=== PATIENT | male | born 1980 | race Caucasian/White ===

== ENCOUNTER 2017-10-16 18:16 | Emergency (ER) | payer OTHER ==
[2017-10-16] MEDS ORDERED: Lidocaine 2% 10 ML Amp INJECT ONE (18:40)
[2017-10-16] MEDS ORDERED: Bupivacaine 0.5% 30 ML SDV INJECT PRN (18:40)
--- NOTE | 2017-10-16 18:46 | EDM.PDOC ---
ED HPI GENERAL MEDICAL PROBLEM - General Chief Complaint: ENT Problem Stated Complaint: Dental Pain Time Seen by Provider: 10/16/17 18:19 Source of Information: Reports: Patient, Family, RN, RN Notes Reviewed History Limitations: Reports: No Limitations - History of Present Illness INITIAL COMMENTS - FREE TEXT/NARRATIVE: Patient presents to the ED at [facility] complaining of right lower jaw/ dental pain that started about 4 days ago and has progressively gotten worse. Patient states he has not been to a dentist in over 15 years. Patient states the right side of his face "feels puffy." He states he had some "pus" come out of the affected tooth area. He states it is difficulty to chew foods due to the pain. He does not see a dentist on a regular basis. Patient denies any headache. Onset Date: 10/13/17 Right Lower Tooth/Teeth Pain Score (Numeric/FACES): 9 - Related Data Allergies Allergy/AdvReac Type Severity Reaction Status Date / Time No Known Allergies Allergy Verified 10/16/17 18:51 Home Meds: Home Meds Clindamycin HCl 1 cap PO TID 10 Days #30 capsule 10/16/17 [Rx] methylPREDNISolone [Medrol] 4 mg PO ASDIRECTED #1 dosepk 10/16/17 [Rx] ED ROS ENT - Review of Systems Review Of Systems: See Below Constitutional: Denies: Fever, Chills HEENT: Reports: Dental Pain Respiratory: Denies: Shortness of Breath, Cough Cardiovascular: Denies: Chest Pain, Palpitations Skin: Reports: No Symptoms Neurological: Reports: No Symptoms. Denies: Dizziness, Headache ED EXAM, ENT - Physical Exam Exam: See Below Exam Limited By: No Limitations General Appearance: Alert, No Apparent Distress Mouth/Throat: Dental Abcess (molar #28), Dental Pain, Dental Tenderness (molar # 28) Neck: Supple Respiratory/Chest: No Respiratory Distress, Lungs Clear, Normal Breath Sounds Cardiovascular: Normal Peripheral Pulses, Regular Rate, Rhythm Neurological: Alert, Oriented Skin: Warm, Dry, Intact, Normal Color, No Rash ED ENT PROCEDURES - Additional/Other Procedure(s) Other (Free Text) Procedure(s): Dental nerve block was performed using 2% Lidocaine with 0.5% Marcaine. A total of 5cc mixture was injection into the right lower buccal area. Patient tolerated procedure well. No complications. Course - Vital Signs Last Recorded V/S: Last Vital Signs Temp 37.8 C 10/16/17 18:25 Pulse 108 H 10/16/17 18:25 Resp 16 10/16/17 18:25 BP 110/74 10/16/17 18:25 Pulse Ox - Orders/Labs/Meds Orders: Active Orders 24 hr Category Date Time Status Bupivacaine 0.5% [Marcaine 0.5%] Med 10/16/17 18:40 Active 30 ml INJECT ASDIRECTED PRN Medication Orders Bupivacaine HCl (Marcaine 0.5%) 30 ml INJECT ASDIRECTED PRN PRN Reason: Other Meds: Medications Generic Name Dose Route Start Last Admin Trade Name Freq PRN Reason Stop Dose Admin Bupivacaine HCl 30 ml 10/16/17 18:40 Marcaine 0.5% INJECT ASDIRECTED PRN Other Discontinued Medications Generic Name Dose Route Start Last Admin Trade Name Freq PRN Reason Stop Dose Admin Clindamycin Phosphate 900 mg 10/17/17 18:47 Cleocin IM 10/17/17 18:48 ONETIME ONE Clindamycin Phosphate 900 mg 10/16/17 18:47 Cleocin IM 10/16/17 18:48 ONETIME ONE Lidocaine HCl 10 ml 10/16/17 18:40 Xylocaine-Mpf 2% (Sterile-Pete) INJECT 10/16/17 18:41 ONETIME ONE Tramadol HCl 1 packet 10/16/17 18:54 Take Home: Tramadol 50 Mg, 4 Tab Pack PO 10/16/17 18:55 ONETIME ONE Departure - Departure Time of Disposition: 19:03 Disposition: Home, Self-Care 01 Condition: Good Clinical Impression: Dental abscess, Dental caries, Pain, dental - Discharge Information Prescriptions: Clindamycin HCl 1 cap PO TID 10 Days #30 capsule methylPREDNISolone [Medrol] 4 mg PO ASDIRECTED #1 dosepk Instructions: Dental Abscess Forms: ED Department Discharge Additional Instructions: 1. Stay well hydrated and rest 2. Take antibiotics for the full coarse, even if you are feeling better 3. Eat yogurt while on antibiotics 4. Do warm salt water gargles 5. Do not drive while taking pain medications, these can make you very drowsy 6. Rinse with an antiseptic mouth wash 7. May take Tylenol/Advil for pain as well 8. See your dentist JOSSE for further treatment, this is something not to be delayed 9. Call with any questions or concerns - Problem List Review Problem List Initiated/Reviewed/Updated: Yes - My Orders Last 24 Hours: My Active Orders 10/16/17 18:40 Bupivacaine 0.5% [Marcaine 0.5%] 30 ml INJECT ASDIRECTED PRN - Assessment/Plan Last 24 Hours: My Active Orders 10/16/17 18:40 Bupivacaine 0.5% [Marcaine 0.5%] 30 ml INJECT ASDIRECTED PRN
[2017-10-16] MEDS ORDERED: Clindamycin Phosphate 900 MG/6 ML SDV IM ONE (18:47)
[2017-10-16] MEDS ORDERED: Take Home: traMADol 50 MG, 4 Tab Pack PO ONE (18:54)
[2017-10-17] MEDS ORDERED: Clindamycin Phosphate 900 MG/6 ML SDV IM ONE (18:47)
== END 2017-10-16 19:41 | disposition home or self-care (01) ==
LOC: VM.ED 18:16
DX: K04.7 Periapical abscess without sinus (principal); K02.9 Dental caries, unspecified; Z79.899 Other long term (current) drug therapy
CPT/HCPCS: 64400; 96372; 99282; A9270; S0077

== ENCOUNTER 2017-10-17 05:32 | Observation (INO) | payer OTHER ==
[2017-10-17] MEDS ORDERED: Acetaminophen 325 MG Tab PO PRN (06:01)
[2017-10-17] MEDS ORDERED: Ondansetron 4 MG/2 ML SDV IV PRN (06:01)
[2017-10-17] MEDS: Acetaminophen/HYDROcodone 325-5 MG Tab PO PRN (06:25)
--- NOTE | 2017-10-17 06:32 | PCM.HP ---
H&P History of Present Illness - General Date of Service: 10/17/17 Admit Problem/Dx: Admission Diagnosis/Problem Admission Diagnosis/Problem Altered mental status Acute confusion Dental Abscess Fever Source of Information: Family, Old Records, RN, RN Notes Reviewed History Limitations: Reports: No Limitations - History of Present Illness Initial Comments - Free Text/Narative: 37-year-old patient with no past medical history is a direct admission to the observation unit at [facility] with a diagnosis of altered mental status, acute confusion, dental abscess, and fevers. The patient was seen in the emergency room department at [facility] last evening by myself. The patient had a one-day history of acute dental pain located around molar #28. The patient states that the pain has been progressive over the past few days, however last night it became unbearable. The patient states the tooth was abscess because he had swelling with purulent drainage around the gumline of that tooth. In the ER, I did give the patient a dental block for immediate pain relief. The patient does not have a regular dentist. The patient states he has not been to a dentist in over 15 years. Over the course of last evening the patient began running fevers of 103-104 at home. The patient's girlfriend noticed the acute onset of confusion with the patient seemingly more lethargic. The patient never complained of any headaches. The girlfriend states that the patient had more pus drainage from the infected tooth. The patient was given one IM injection of 900 mg clindamycin in the emergency room. The patient was given a prescription for clindamycin 900 mg 3 times a day and also a prescription for a Medrol Dosepak. The girlfriend states that she gave the patient 400 mg of by mouth ibuprofen for his pain around 4am as well as one of the tramadol for his dental pain. The girlfriend states that the patient has progressively gotten worse with his confusion and fever therefore she brought him back to the hospital. Onset of Symptoms: Reports: Today Symptom Onset Date: 10/17/17 - Related Data Allergies/Adverse Reactions: Allergies Allergy/AdvReac Type Severity Reaction Status Date / Time No Known Allergies Allergy Verified 10/16/17 18:51 Home Medications: Home Meds Clindamycin HCl 1 cap PO TID 10 Days #30 capsule 10/16/17 [Rx] methylPREDNISolone [Medrol] 4 mg PO ASDIRECTED #1 dosepk 10/16/17 [Rx] Past Medical History Gastrointestinal History: Reports: Bowel Obstruction - Past Surgical History GI Surgical History: Reports: Colostomy Other GI Surgeries/Procedures: revision of colostomy Social & Family History - Family History Family Medical History: Noncontributory - Tobacco Use Smoking Status *Q: Current Every Day Smoker Years of Tobacco use: 20 Packs/Tins Daily: 1 - Recreational Drug Use Recreational Drug Use: No Drug Use in Last 12 Months: No - Living Situation & Occupation Living situation: Reports: Single Occupation: Employed H&P Review of Systems - Review of Systems: Review Of Systems: See Below General: Reports: Fever, Chills. Denies: Weakness HEENT: Reports: Other (right lower jaw dental/facial pain) Pulmonary: Denies: Shortness of Breath, Cough Cardiovascular: Denies: Chest Pain, Palpitations Gastrointestinal: Reports: Nausea. Denies: Abdominal Pain, Vomiting Skin: Reports: No Symptoms Psychiatric: Reports: Confusion Neurological: Reports: Confusion. Denies: Headache Exam - Exam Exam: See Below - Vital Signs Vital Signs: Last Vital Signs Temp 38.4 C H 10/17/17 05:32 Pulse 132 H 10/17/17 05:32 Resp 28 H 10/17/17 05:32 BP 147/74 H 10/17/17 05:32 Pulse Ox 95 10/17/17 05:32 - Exam General: Alert, Oriented HEENT: Other (Percussion tenderness #28; gumline inflammed; mild right side facial swelling) Lungs: Clear to Auscultation, Normal Respiratory Effort Cardiovascular: Regular Rate, Regular Rhythm, Normal S1, Normal S2 GI/Abdominal Exam: Normal Bowel Sounds, Soft, Non-Tender Peripheral Pulses: 2+: Radial (L), Radial (R) Skin: Warm, Dry, Intact Neuro Extensive - Mental Status: Alert, Disorientation to Place, Disorientation to Time *Q Meaningful Use (ADM) - VTE *Q VTE Criteria *Q: No risk factors for VTE - Stroke *Q Stroke Criteria *Q: - AMI *Q AMI Criteria *Q: - Problem List (1) Altered mental status SNOMED Code(s): 042797029 ICD Code: R41.82 - ALTERED MENTAL STATUS, UNSPECIFIED Status: Acute Priority: High Current Visit: Yes Onset Date: ~10/17/17 Qualifiers: Altered mental status type: unspecified Qualified Code(s): R41.82 - Altered mental status, unspecified (2) Acute confusion SNOMED Code(s): 327229156 ICD Code: R41.0 - DISORIENTATION, UNSPECIFIED Status: Acute Priority: High Current Visit: Yes Onset Date: ~10/17/17 (3) Dental abscess SNOMED Code(s): 386791437 ICD Code: K04.7 - PERIAPICAL ABSCESS WITHOUT SINUS Status: Acute Priority : Medium Current Visit: Yes Onset Date: ~10/16/17 (4) Fever SNOMED Code(s): 800373061 ICD Code: R50.9 - FEVER, UNSPECIFIED Status: Acute Priority: Medium Current Visit: Yes Onset Date: ~10/17/17 Qualifiers: Fever type: unspecified Qualified Code(s): R50.9 - Fever, unspecified Problem List Initiated/Reviewed/Updated: Yes Orders Last 24hrs: Active Orders 24 hr Category Date Time Status Patient Status [ADT] Routine ADT 10/17/17 06:01 Active Ambulate [RC] ASDIRECTED Care 10/17/17 06:01 Active Height and Weight [RC] UPON Care 10/17/17 06:01 Active Intake and Output [RC] QSHIFT Care 10/17/17 06:02 Active May Shower [RC] ASDIRECTED Care 10/17/17 06:01 Active Oxygen Therapy [RC] PRN Care 10/17/17 06:01 Active VTE/DVT Education [RC] PER UNIT ROUTINE Care 10/17/17 06:01 Active Vital Signs [RC] Q4H Care 10/17/17 06:01 Active Consult to Case Management [CONS] Routine Cons 10/17/17 06:01 Active Mechanical Soft Diet [DIET] Diet 10/17/17 Breakfast Active Max Facial Sinus wo Cont [CT] Routine Exams 10/17/17 06:11 Ordered BASIC METABOLIC PANEL,BMP [CHEM] Routine Lab 10/17/17 06:07 Ordered CBC WITH AUTO DIFF [HEME] Routine Lab 10/17/17 06:07 Ordered CRP [C-REACTIVE PROTEIN] [CHEM] Routine Lab 10/17/17 06:07 Ordered CULTURE BLOOD [BC] Stat Lab 10/17/17 06:08 Ordered CULTURE BLOOD [BC] Stat Lab 10/17/17 06:08 Ordered DRUG SCREEN, URINE [URCHEM] Routine Lab 10/17/17 06:14 Uncollected LACTIC ACID [CHEM] Routine Lab 10/17/17 06:07 Ordered UA W/MICROSCOPIC [URIN] Routine Lab 10/17/17 06:14 Uncollected Acetaminophen [Tylenol] Med 10/17/17 06:01 Active 650 mg PO Q4H PRN Acetaminophen/HYDROcodone [[place] 325-5 MG] Med 10/17/17 06:01 Active 1 tab PO Q4H PRN Clindamycin Phosphate [Cleocin] 900 mg Med 10/17/17 08:00 Active Sodium Chloride 0.9% [Normal Saline] 100 ml IV Q8HR Lactated Ringers [Ringers, Lactated] 1,000 ml Med 10/17/17 06:15 Active IV ASDIRECTED Nicotine [Habitrol] Med 10/17/17 08:00 Active 21 mg TRDERM DAILY Ondansetron [Zofran] Med 10/17/17 06:01 Active 4 mg IV Q6H PRN methylPREDNISolone Sod Succ [Solu-MEDROL] Med 10/17/17 08:00 Active 40 mg IVPUSH DAILY Blood Culture x2 Reflex Set [OM.PC] Stat Oth 10/17/17 06:07 Ordered Resuscitation Status Routine Resus Stat 10/17/17 06:01 Ordered Medication Orders Acetaminophen (Tylenol) 650 mg PO Q4H PRN PRN Reason: Pain (Mild 1-3)/fever Hydrocodone Bitart/Acetaminophen ([place] 325-5 Mg) 1 tab PO Q4H PRN PRN Reason: Pain (moderate 4-6) Lactated Ringer's (Ringers, Lactated) 1,000 mls @ 125 mls/hr IV ASDIRECTED JACKY Clindamycin Phosphate 900 mg/ (Sodium Chloride) 106 mls @ 200 mls/hr IV Q8HR JACKY Methylprednisolone Sodium Succinate (Solu-Medrol) 40 mg IVPUSH DAILY JACKY Nicotine (Habitrol) 21 mg TRDERM DAILY JACKY Ondansetron HCl (Zofran) 4 mg IV Q6H PRN PRN Reason: Nausea/Vomiting Assessment/Plan Comment:: 37-year-old male patient with no past medical history is admitted to observation unit for a diagnosis of altered mental status, acute confusion, dental abscess, fevers. The patient will be started on IV clindamycin and also lactated Ringer's for fluid hydration. Patient will be given 40 mg of IV Solu- Medrol for inflammation around the infected tooth. I will obtain a CT scan of the right jaw and face to assess dental abscess status. The patient does meet sepsis criteria and therefore we will obtain the appropriate laboratory work, antibiotics, and fluid resuscitation. We will also check a urine drug screen, I do anticipate this to be positive for tramadol metabolites as he is on a tramadol prescription. The patient is a full code. I do anticipate the patient' s admission to be less than 48 hours. The patient does wish to be transferred to a higher level of care should the need arise. Will ask Case Management to see this patient for discharge planning and any financial concerns the patient may have. Care discussed with patient and girlfriend. It may be plausible the patient's altered mental status could be caused by the antibiotic, tramadol, worsening infection, lack of sleep. Will monitor closely.
[2017-10-17] MEDS ORDERED: methylPREDNISolone Sodium Succinate 40 MG/1 ML SDV IVPUSH SCH (08:00)
[2017-10-17] MEDS: Nicotine 21 MG/24 Hr Patch TRDERM SCH (09:03)
[2017-10-17] MEDS: Clindamycin Phosphate 900 MG in Sodium Chloride 0.9% 100 ML IV SCH ×3 (09:06→23:21)
[2017-10-17] MEDS: Lactated Ringers 1,000 ML IV SCH ×7 (10:00→23:23)
--- NOTE | 2017-10-17 11:15 | PCM.PN ---
- General Info Date of Service: 10/17/17 Admission Dx/Problem (Free Text): dental infection Subjective Update: Pt. states that he is feeling somewhat better. The results of his CT show no evidence of osteomyelitis or abscess, however this is a non-contrast CT. He states that he has been diaphoretic. Pt. was quite confused on admission, and had a temp of greater than 103 at that time. After his first dose of clindamycin, tylenol and fluids, he is more alert and "making more sense" according to his significant other. Pt. does have an elevated creatnine of 1.8 and has been unable to urinate. Functional Status: Reports: Pain Controlled - Review of Systems General: Reports: Fever, Weakness, Fatigue, Malaise, Chills, Night Sweats HEENT: Reports: Other (dental infection) Pulmonary: Reports: No Symptoms Cardiovascular: Reports: No Symptoms Gastrointestinal: Reports: No Symptoms Genitourinary: Reports: No Symptoms Musculoskeletal: Reports: No Symptoms Skin: Reports: No Symptoms Neurological: Reports: Confusion Psychiatric: Reports: No Symptoms - Patient Data Vitals - Most Recent: Last Vital Signs Temp 36.5 C 10/17/17 10:00 Pulse 77 10/17/17 10:00 Resp 20 10/17/17 10:00 BP 118/66 10/17/17 10:00 Pulse Ox 98 10/17/17 10:00 Weight - Most Recent: 101.514 kg Lab Results Last 24 Hours: Laboratory Results - last 24 hr 10/17/17 10/17/17 10/17/17 Range/Units 07:10 07:10 07:10 WBC 7.7 (4.0-10.0) x10^3/uL RBC 5.12 (4.5-6.0) x10^6/uL Hgb 14.8 (14.0-18.0) g/dL Hct 43.0 (40.0-52.0) % MCV 84.0 (78.0-93.0) fL MCH 28.9 (26.0-32.0) pg MCHC 34.4 (32.0-36.0) g/dL RDW Coeff of Gisela 13.6 (10.0-15.0) % Plt Count 136 (130-400) x10^3/uL Neut % (Auto) 89.1 H (50.0-80.0) % Lymph % (Auto) 5.2 L (25.0-50.0) % [place] % (Auto) 5.6 (2.0-11.0) % Eos % (Auto) 0.0 (0.0-4.0) % Baso % (Auto) 0.1 L (0.2-1.2) % Sodium 134 L (136-145) mmol/L Potassium 3.6 (3.5-5.1) mmol/L Chloride 99 (98-107) mmol/L Carbon Dioxide 23 (21-32) mmol/L BUN 23 H (7-18) mg/dL Creatinine 1.8 H (0.70-1.30) mg/dL Est Cr Clr Drug Dosing 56.89 mL/min Estimated GFR (MDRD) 42 Glucose 130 H (74-106) mg/dL Lactic Acid 1.5 (0.4-2.0) mmol/L Calcium 8.6 (8.5-10.1) mg/dL C-Reactive Protein 29.9 H (<=0.9) mg/dL Med Orders - Current: Current Medications Acetaminophen (Tylenol) 650 mg PO Q4H PRN PRN Reason: Pain (Mild 1-3)/fever Hydrocodone Bitart/Acetaminophen ([place] 325-5 Mg) 1 tab PO Q4H PRN PRN Reason: Pain (moderate 4-6) Last Admin: 10/17/17 06:25 Dose: 1 tab Lactated Ringer's (Ringers, Lactated) 1,000 mls @ 1,000 mls/hr IV ASDIRECTED [facility] Last Admin: 10/17/17 10:00 Dose: 1,000 mls/hr Clindamycin Phosphate 900 mg/ (Sodium Chloride) 106 mls @ 200 mls/hr IV Q8HR [facility] Last Admin: 10/17/17 09:06 Dose: 200 mls/hr Methylprednisolone Sodium Succinate (Solu-Medrol) 40 mg IVPUSH DAILY [facility] Last Admin: 10/17/17 09:00 Dose: 40 mg Nicotine (Habitrol) 21 mg TRDERM DAILY [facility] Last Admin: 10/17/17 09:03 Dose: 21 mg Ondansetron HCl (Zofran) 4 mg IV Q6H PRN PRN Reason: Nausea/Vomiting - Exam General: Alert, No Acute Distress, Other (mildly confused) HEENT: Pupils Equal, Pupils Reactive, EOMI, Mucous Membr. Moist/[place] Neck: Trachea Midline, No Thyromegaly, Lymphadenopathy (anterior and posterior cervical lymphadenopathy) Lungs: Clear to Auscultation, Normal Respiratory Effort Back Exam: Normal Inspection, Full Range of Motion Extremities: Normal Inspection, Normal Range of Motion, Non-Tender, No Pedal Edema, Normal Capillary Refill Peripheral Pulses: 3+: Radial (L), Radial (R) Skin: Warm, Dry, Intact Wound/Incisions: Healing Well Neurological: No New Focal Deficit Psy/Mental Status: Alert, Normal Affect - Problem List Review Problem List Initiated/Reviewed/Updated: Yes - My Orders Last 24 Hours: My Active Orders 10/17/17 13:00 LACTIC ACID [CHEM] Routine - Assessment Assessment:: dental infection decreased kidney function-Prerenal vs. KIT. - Plan Plan:: 37-year-old male patient with no past medical history is admitted to observation unit for a diagnosis of altered mental status, acute confusion, dental abscess, fevers. The patient will be started on IV clindamycin and also lactated Ringer's for fluid hydration. Patient will be given 40 mg of IV Solu- Medrol for inflammation around the infected tooth. I will obtain a CT scan of the right jaw and face to assess dental abscess status. The patient does meet sepsis criteria and therefore we will obtain the appropriate laboratory work, antibiotics, and fluid resuscitation. We will also check a urine drug screen, I do anticipate this to be positive for tramadol metabolites as he is on a tramadol prescription. The patient is a full code. I do anticipate the patient' s admission to be less than 48 hours. The patient does wish to be transferred to a higher level of care should the need arise. Will ask Case Management to see this patient for discharge planning and any financial concerns the patient may have. Care discussed with patient and girlfriend. It may be plausible the patient's altered mental status could be caused by the antibiotic, tramadol, worsening infection, lack of sleep. Will monitor closely. Addendum: Continue current dose of Clindamycin Will administer a 2000ml fluid bolus. Possible causes of his elevated creatnine are prerenal azotemia secondary to dehydration or KIT secondary to sepsis. To note, he is well-built, so it is possible Repeat lactate in 6 hours after last draw. Repeat CBC, chemistry, lactic acid, and CRP this evening. Social work is working on finding a dentist for this pt.
[2017-10-17] MEDS ORDERED: Ampicillin/Sulbactam Na 3 GM in Sodium Chloride 0.9% 100 ML IV STA (14:09)
[2017-10-17] MEDS ORDERED: Piperacillin/Tazobactam 4.5 GM in Sodium Chloride 0.9% 100 ML IV ONE (14:13)
[2017-10-17] MEDS ORDERED: Zolpidem 5 MG Tab PO PRN (20:48)
[2017-10-17] MEDS: Piperacillin/Tazobactam 3.375 GM in Sodium Chloride 0.9% 100 ML IV SCH (21:49)
[2017-10-17 22:45] LABS: CHLORIDE,CL 101 mmol/L (98-107); SODIUM,NA 138 mmol/L (136-145)
[2017-10-18] MEDS: Piperacillin/Tazobactam 3.375 GM in Sodium Chloride 0.9% 100 ML IV SCH ×2 (05:57→13:10)
[2017-10-18] MEDS: Clindamycin Phosphate 900 MG in Sodium Chloride 0.9% 100 ML IV SCH ×2 (07:22→15:04)
[2017-10-18] MEDS: Nicotine 21 MG/24 Hr Patch TRDERM SCH (07:22)
[2017-10-18] MEDS ORDERED: Enoxaparin 40 MG/0.4 ML Syringe SUBCUT SCH (08:00)
[2017-10-18] MEDS: Lactated Ringers 1,000 ML IV SCH (08:57)
[2017-10-18] MEDS: Acetaminophen/HYDROcodone 325-5 MG Tab PO PRN (10:00)
[2017-10-18 14:21] LABS: CHLORIDE,CL 105 mmol/L (98-107); SODIUM,NA 141 mmol/L (136-145)
--- NOTE | 2017-10-22 00:07 | PCM.DCSUM1 ---
Discharge Summary - Hospital Course Free Text/Narrative:: Pt. presented to ER with complaints of L sided mandibular pain and was subsequently admitted on observation status by Bobby Metz for dental infection/ cellulitis. Pt. underwent a CT soft tissue face/neck which showed some localized swelling but no evidence of abscess, free air, or osteomyelitis. Pt. was admitted on IV clindamycin and labs were rechecked after approx. 12 hours. At that time, pt. was found to have an elevated CRP and lactic acid. He was subsequently started on IV Zosyn in addition to the clindamycin and he was given another approx. 2 liters of NS and started on NS at 125ml/hr. By the next morning, his swelling had decreased, and his WBCs, CRP and lactic acid were all within normal limits. Pt. was feeling much improved and was requesting discharge home. - Discharge Data Discharge Date: 10/22/17 Discharge Disposition: Home, Self-Care 01 Condition: Good - Discharge Diagnosis/Problem(s) (1) Dental caries SNOMED Code(s): 84402941 ICD Code: K02.9 - DENTAL CARIES, UNSPECIFIED Status: Acute - Patient Summary/Data Consults: Consultations 10/17/17 06:01 Consult to Case Management [CONS] Routine - Patient Instructions Diet: Regular Diet as Tolerated Activity: Rest and Relax Today Driving: Do Not Drive (today) Showering/Bathing: May Shower Notify Provider of: Swelling and Redness (fever, chills, lightheadedness, increased swelling, or other worrisome signs/symptoms.), Drainage - Discharge Plan Home Medications: Home Meds Clindamycin HCl 1 cap PO TID 10 Days #30 capsule 10/16/17 [Rx] Acetaminophen [Tylenol] 650 mg PO Q4H PRN tablet 10/18/17 [Rx] - Patient Data Vitals - Most Recent: Last Vital Signs Temp 36.5 C 10/18/17 14:00 Pulse 83 10/18/17 14:00 Resp 20 10/18/17 14:00 BP 132/75 10/18/17 14:00 Pulse Ox 100 10/18/17 14:00 Weight - Most Recent: 101.514 kg EVIN Results - Last 24 hrs: Microbiology 10/17/17 07:10 Aerobic Blood Culture - Preliminary Blood - Venous - Lab Draw NO GROWTH AFTER 4 DAYS Anaerobic Blood Culture - Preliminary NO GROWTH AFTER 4 DAYS 10/17/17 06:45 Aerobic Blood Culture - Preliminary Blood - Venous NO GROWTH AFTER 4 DAYS Anaerobic Blood Culture - Preliminary NO GROWTH AFTER 4 DAYS Med Orders - Current: Current Medications Discontinued Medications Acetaminophen (Tylenol) 650 mg PO Q4H PRN PRN Reason: Pain (Mild 1-3)/fever Last Admin: 10/17/17 11:59 Dose: 650 mg Hydrocodone Bitart/Acetaminophen ([place] 325-5 Mg) 1 tab PO Q4H PRN PRN Reason: Pain (moderate 4-6) Last Admin: 10/18/17 10:00 Dose: 1 tab Enoxaparin Sodium (Lovenox) 40 mg SUBCUT DAILY [facility] Last Admin: 10/18/17 07:22 Dose: 40 mg Lactated Ringer's (Ringers, Lactated) 1,000 mls @ 1,000 [facility]ls[facility] Last Admin: 10/17/17 11:53 Dose: 800 mls/hr Clindamycin Phosphate 900 mg/ (Sodium Chloride) 106 mls @ 200 mls/hr IV Q8HR [facility] Last Admin: 10/18/17 15:04 Dose: 200 mls/hr Lactated Ringer's (Ringers, Lactated) 1,000 mls @ 125 mls/hr IV ASDIRECTED [facility] Last Admin: 10/18/17 08:57 Dose: 125 mls/hr Ampicillin Sodium/Sulbactam (Sodium 3 gm/ Sodium Chloride) 100 mls @ 200 mls/ hr IV NOW STA Stop: 10/17/17 14:38 Last Admin: 10/17/17 14:54 Dose: Not Given Piperacillin Sod/Tazobactam (Sod 4.5 gm/ Sodium Chloride) 100 mls @ 200 mls/hr IV ONETIME ONE Stop: 10/17/17 14:42 Last Admin: 10/17/17 14:51 Dose: 200 mls/hr Lactated Ringer's (Ringers, Lactated) 1,000 mls @ 1,000 mls/hr IV ASDIRECTED [facility] Stop: 10/17/17 16:00 Last Admin: 10/17/17 15:36 Dose: 800 mls/hr Piperacillin Sod/Tazobactam (Sod 3.375 gm/ Sodium Chloride) 100 mls @ 25 mls/ hr IV Q8H [facility] Last Admin: 10/18/17 13:10 Dose: 25 mls/hr Methylprednisolone Sodium Succinate (Solu-Medrol) 40 mg IVPUSH DAILY [facility] Last Admin: 10/17/17 09:00 Dose: 40 mg Nicotine (Habitrol) 21 mg TRDERM DAILY [facility] Last Admin: 10/18/17 07:22 Dose: 21 mg Ondansetron HCl (Zofran) 4 mg IV Q6H PRN PRN Reason: Nausea/Vomiting Zolpidem Tartrate (Ambien) 5 mg PO BEDTIME PRN PRN Reason: Sleep Last Admin: 10/17/17 21:52 Dose: 5 mg *Q Meaningful Use (DIS) - VTE *Q VTE Criteria *Q: - Stroke *Q Stroke Criteria *Q: - AMI *Q AMI Criteria *Q:
== END 2017-10-18 16:22 | disposition home or self-care (01) ==
LOC: VM.MS 05:32 → UNDOADMOB 05:32 → EDSTATUS 05:50 → VM.MS 06:01
PROVIDERS: ADMIT Nurse Practitioner Family; ATTEND Nurse Practitioner Family
DX: K02.9 Dental caries, unspecified (principal); Z79.899 Other long term (current) drug therapy; F17.210 Nicotine dependence, cigarettes, uncomplicated; Z93.3 Colostomy status; Z79.2 Long term (current) use of antibiotics
CPT/HCPCS: 36415; 70486; 80048; 80053; 80305; 81001; 83605; 83735; 85025; 85027; 86140; 87040; 96361; 96365; 96366; 96367; 96372; 96375; A9270; G0378; G0379; G0480; J1650; J2543; J2920; J7050; J7120; S0077